=== PATIENT | male | born 1965 | race African-American/Black ===

== ENCOUNTER 2017-08-21 20:04 | Inpatient (IN) | payer OTHER ==
--- NOTE | 2017-08-21 20:33 | HP ---
COWS - Scale Resting Pulse: 1= [place] 81-100 Sweatin=Flushed/Facial Moisture Restless Observation: 0= Sits Still Pupil Size: 0= Normal to Room Light Bone or Joint Aches: 4=Acute Joint/Muscle Pain Runny Nose/ Eye Tearin= Runny Nose/Eyes GI Upset > 30mins: 3= Vomiting/Diarrhea (vomiting x 1) Tremor Observation: 2= Slight Tremor Visible Yawning Observation: 0= None Anxiety or Irritability: 2=Irritable/Anxious Goose Flesh Skin: 0=Smooth Skin COWS Score: 16 CIWA Score - CIWA Score Nausea/Vomitin (vomiting x 1) Muscle Tremors: 4-Moderate,w/Arms Extend Anxiety: 3 Agitation: 2 Paroxysmal Sweats: 3 Orientation: 0-Oriented Tacttile Disturbances: 0-None Auditory Disturbances: 0-None Visual Disturbances: 0-None Headache: 0-None Present CIWA-Ar Total Score: 14 Admission [facility] - HPI Chief Complaint: Alcohol and heroin withdrawal symptoms Allergies/Adverse Reactions: Allergies Allergy/AdvReac Type Severity Reaction Status Date / Time No Known Allergies Allergy Verified 08/21/17 22:53 History of Present Illness: 51 years old male with a long history of alcohol and heroin dependence is admitted to detox. Patient states that he was on [facility]MTP program but stopped 3 months ago. He has been in previous detox and reports 2 years of sobriety. He has past medical history of asthma, HTN, CHF and hypercholesterolemia. He denies suicidal ideation at this time. Exam Limitations: No Limitations - Ebola screening Have you traveled outside of the country in the last 21 days: No (N) Have you had contact with anyone from an Ebola affected area: No Have you been sick,other than usual withdrawal symptoms: No Do you have a fever: No - Review of Systems Constitutional: Chills, Malaise, Night Sweats, Changes in sleep EENT: reports: No Symptoms Reported Respiratory: reports: No Symptoms reported (yellow phlegm), Cough Cardiac: reports: No Symptoms Reported GI: reports: Poor Fluid Intake, Vomiting, Abdominal cramping : reports: No Symptoms Reported Musculoskeletal: reports: Back Pain, Muscle Pain, Muscle Weakness, Other ( sholuder pain) Integumentary: reports: Dryness, Flushing Neuro: reports: Tingling, Tremors Endocrine: reports: No Symptoms Reported Hematology: reports: No Symptoms Reported Psychiatric: reports: Mood/Affect Appropiate, Orientated x3, Anxious Other Systems: Reviewed and Negative Patient History - Patient Medical History Hx Anemia: No Hx Asthma: Yes (MDI) Hx Chronic Obstructive Pulmonary Disease (COPD): No Hx Cancer: No Hx Cardiac Disorders: Yes (CHF on meds.) Hx Congestive Heart Failure: Yes (COREG, DIGOXIN, ASPIRIN) Hx Hypertension: Yes (LISINOPRIL, ISORSORBIDE) Hx Hypercholesterolemia: Yes Hx Pacemaker: No HX Cerebrovascular Accident: No Hx Seizures: No Hx Dementia: No Hx Diabetes: No Hx Gastrointestinal Disorders: No Hx Liver Disease: No Hx Genitourinary Disorders: No Hx Sexually Transmitted Disorders: No Hx Renal Disease (ESRD): No Hx Thyroid Disease: No Hx Human Immunodeficiency Virus (HIV): No (NEGATIVE 2016) Hx Hepatitis C: No (NEGATIVE 2016) Hx Depression: No Hx Suicide Attempt: No (DENIES SUICIDAL IDEATION) Hx Bipolar Disorder: No Hx Schizophrenia: No - Patient Surgical History Past Surgical History: No - PPD History Previous Implant?: Yes Documented Results: Negative w/proof Implanted On Prior [facility] Admission?: Yes Date: 02/22/14 PPD to be Administered?: Yes - Reproductive History Patient is a Female of Child Bearing Age (11 -55 yrs old): No (MALE) - Smoking Cessation Smoking history: Current every day smoker Have you smoked in the past 12 months: Yes Aproximately how many cigarettes per day: 5 Hx Chewing Tobacco Use: No Initiated information on smoking cessation: Yes 'Breaking Loose' booklet given: 08/21/17 - Substance & Tx. History Hx Alcohol Use: Yes Hx Substance Use: Yes Substance Use Type: Alcohol, Cocaine, Heroin Hx Substance Use Treatment: Yes ([facility]) - Substances Abused Alcohol Route: Oral Frequency: Daily Amount used: 5 beers Age of first use: 18 Date of Last Use: 08/21/17 Heroin Route: Inhalation Frequency: Daily Amount used: 5 bags Age of first use: 18 Date of Last Use: 08/21/17 Family Disease History - Family Disease History Family Disease History: Heart Disease: Father (HTN) Admission Physical Exam S - Physical General Appearance: Yes: Moderate Distress, Tremorous, Irritable, Sweating, Anxious HEENTM: Yes: EOMI, Normal ENT Inspection, Normal Voice, AYALA Respiratory: Yes: Lungs Clear, Normal Breath Sounds, No Respiratory Distress Neck: Yes: No masses,lesions,Nodules, Supple, Trachea in good position Breast: Yes: Breast Exam Deferred Cardiology: Yes: Regular Rhythm, Regular Rate, S1, S2 Abdominal: Yes: Normal Bowel Sounds, Soft Genitourinary: Yes: Within Normal Limits Back: Yes: Normal Inspection Musculoskeletal: Yes: Back pain, Muscle Pain, Muscle weakness Extremities: Yes: Tremors Neurological: Yes: Alert, Normal Mood/Affect Integumentary: Yes: Warm Lymphatic: Yes: Within Normal Limits - Diagnostic (1) Opioid dependence with withdrawal Current Visit: Yes Status: Chronic (2) Cocaine dependence, uncomplicated Current Visit: Yes Status: Chronic (3) Asthma Current Visit: Yes Status: Chronic (4) CHF (congestive heart failure) Current Visit: Yes Status: Chronic (5) Essential hypertension Current Visit: Yes Status: Chronic (6) Nicotine dependence Current Visit: Yes Status: Chronic Cleared for Admission [facility] - Detox or Rehab S Level of Care: Medically Managed Detox Regimen/Protocol: Methadone/Librium [facility] Breath Alcohol Content Breath Alcohol Content: 0 Vital Signs - Vital Signs Vital Signs Refused: No
[2017-08-21 20:36] VITALS: BMI 26.1
[2017-08-21] MEDS ORDERED: guaiFENesin/D-METHORPHAN HB 10 ML UNIT-DOSE CUPS PO PRN (20:57)
[2017-08-21] MEDS ORDERED: MENTHOL/PHENOL 1 EACH UD MM PRN (20:57)
[2017-08-21] MEDS ORDERED: MAGNESIUM HYDROX 2400MG/30ML ORAL SUSPENSION 30 ML CUP PO PRN (20:57)
[2017-08-21] MEDS ORDERED: NICOTINE POLACRILEX 2 MG GUM BC PRN (20:57)
[2017-08-21] MEDS ORDERED: chlordiazePOXIDE HCL 25 MG CAPSULE PO PRN (20:57)
[2017-08-21] MEDS ORDERED: LOPERAMIDE HCL 2 MG CAPSULE PO PRN (20:57)
[2017-08-21] MEDS ORDERED: METHADONE HCL 10 MG TABLET (FOR DETOX USE ONLY) PO ONE ×2 (20:57→23:00)
[2017-08-21] MEDS ORDERED: ACETAMINOPHEN 325 MG TABLET (FP) PO PRN (20:57)
[2017-08-21] MEDS ORDERED: MAGNESIUM CITRATE 300 ML BOTTLE PO PRN (20:57)
[2017-08-21] MEDS ORDERED: IBUPROFEN 400 MG TABLET (FP) PO PRN (20:57)
[2017-08-21] MEDS ORDERED: P-EPHED 60MG/TRIPROLIDI 2.5MG TABLET PO PRN (20:57)
[2017-08-21] MEDS ORDERED: METHADONE HCL 10 MG TABLET (FOR DETOX USE ONLY) ONE (23:08)
[2017-08-21] MEDS: ATORVASTATIN CA 10 MG TABLET (FP) PO SCH (23:11)
[2017-08-21] MEDS: chlordiazePOXIDE HCL 25 MG CAPSULE PO SCH (23:11)
[2017-08-21] MEDS: THIAMINE HCL 100 MG TABLET (FP) PO SCH (23:12)
[2017-08-22 00:06] LABS: URINE APPEARANCE CLEAR; URINE BILIRUBIN NEGATIVE (NEGATIVE); URINE BLOOD NEGATIVE (NEGATIVE); URINE COLOR LTYELLOW; URINE GLUCOSE (UA) NEGATIVE (NEGATIVE); URINE KETONE NEGATIVE (NEGATIVE); URINE LEUK ESTERASE NEGATIVE (NEGATIVE); URINE NITRITE NEGATIVE (NEGATIVE); URINE PROTEIN NEGATIVE (NEGATIVE)
[2017-08-22] MEDS: chlordiazePOXIDE HCL 25 MG CAPSULE PO SCH ×4 (05:47→22:23)
[2017-08-22] MEDS ORDERED: METHADONE HCL 10 MG TABLET (FOR DETOX USE ONLY) PO SCH (10:00)
[2017-08-22 10:17] LABS: HEMATOCRIT 40.9 % (35.4-49); MCH 28.3 pg (25.7-33.7); MCHC 31.7 g/dl (32.0-35.9); MEAN CELL VOLUME 89.3 fl (80-96); MEAN PLT VOLUME 7.7 fl (7.5-11.1); PLATELET COUNT 232 K/MM3 (134-434); RBC 4.58 M/mm3 (4.00-5.60); WHITE BLOOD COUNT 5.3 K/mm3 (4.0-10.0)
--- NOTE | 2017-08-22 10:20 | PN ---
[facility] CIWA - CIWA Score Nausea/Vomitin-Mild Nausea/No Vomiting Muscle Tremors: 4-Moderate,w/Arms Extend Anxiety: 3 Agitation: 3 Paroxysmal Sweats: 1-Minimal Palms Moist Orientation: 0-Oriented Tacttile Disturbances: 0-None Auditory Disturbances: 0-None Visual Disturbances: 0-None Headache: 0-None Present CIWA-Ar Total Score: 12 S COWS - Scale Resting Pulse: 1= [place] 81-100 Sweatin= Chills/Flushing Restless Observation: 3= Extraneous Movement Pupil Size: 0= Normal to Room Light Bone or Joint Aches: 2= Severe Diffuse Aches Runny Nose/ Eye Tearin= Runny Nose/Eyes GI Upset > 30mins: 1= Stomach Cramp Tremor Observation of Outstretched Hands: 1= Tremor [place], Not Seen Yawning Observation: 1= 1-2x During Session Anxiety or Irritability: 2=Irritable/Anxious Goose Flesh Skin: 0=Smooth Skin COWS Score: 14 [facility] Progress Note (SOAP) Subjective: GI distress tremor sweating restlessness Objective: 08/22/17 10:21 Vital Signs Temperature 96.3 F L 08/22/17 06:28 Pulse Rate 81 08/22/17 06:28 Respiratory Rate 18 08/22/17 06:28 Blood Pressure 110/73 08/22/17 06:28 O2 Sat by Pulse Oximetry (%) Laboratory Last Values Urine Color Ltyellow 08/21/17 23:50 Urine Appearance Clear 08/21/17 23:50 Urine pH 6.0 (5.0-8.0) 08/21/17 23:50 Ur Specific [place] 1.015 (1.001-1.035) 08/21/17 23:50 Urine Protein Negative (NEGATIVE) 08/21/17 23:50 Urine Glucose (UA) Negative (NEGATIVE) 08/21/17 23:50 Urine Ketones Negative (NEGATIVE) 08/21/17 23:50 Urine Blood Negative (NEGATIVE) 08/21/17 23:50 Urine Nitrite Negative (NEGATIVE) 08/21/17 23:50 Urine Bilirubin Negative (NEGATIVE) 08/21/17 23:50 Urine Urobilinogen 2.0 mg/dL (0.2-1.0) 08/21/17 23:50 Ur Leukocyte Esterase Negative (NEGATIVE) 08/21/17 23:50 lab noted 08/22/17 10:21 bp 157/106 patient will received lisinopril amlodopine coreg Assessment: 08/22/17 10:21 withdrawal sx Plan: continue detox continue bp monitoring
[2017-08-22 10:21] LABS: ALBUMIN 2.6 g/dl (3.4-5.0); ANION GAP 7 (8-16); BILIRUBIN,TOTAL 1.1 mg/dL (0.2-1.0); BLOOD UREA NITROGEN 18 mg/dL (7-18); CALCIUM 7.5 mg/dL (8.5-10.1); CHLORIDE 99 mmol/L (98-107); CO2 32 mmol/L (21-32); CREATININE 1.3 mg/dL (0.7-1.3); GLUCOSE,RANDOM 97 mg/dL (74-106); SGOT/AST 51 U/L (15-37); SGPT/ALT 87 U/L (12-78); SODIUM 138 mmol/L (136-145); TOT PROT 5.2 g/dl (6.4-8.2)
[2017-08-22 10:22] LABS: ALK PHOS 204 U/L (45-117)
[2017-08-22] MEDS: ASPIRIN 81 MG CHEWABLE TABLETS PO SCH (10:49)
[2017-08-22] MEDS: ISOSORBIDE MONONITRATE 30 MG TAB.SR.24H (FP) PO SCH (10:49)
[2017-08-22] MEDS: LISINOPRIL 20 MG TABLET (FP) PO SCH (10:49)
[2017-08-22] MEDS: CARVEDILOL 25 MG TABLET (FP) PO SCH (10:50)
[2017-08-22] MEDS: PRENATAL VITAMINS W/ FOLIC ACID TABLET (FP) PO SCH (10:50)
[2017-08-22] MEDS: amLODIPine BESYLATE 10 MG TABLET (FP) PO SCH (10:50)
[2017-08-22] MEDS: NICOTINE 14 MG/24 HOURS TOPICAL PATCH TD SCH (10:50)
[2017-08-22 11:37] LABS: POTASSIUM 2.9 mmol/L (3.5-5.1)
[2017-08-22] MEDS: POTASSIUM CHLORIDE ORAL LIQUID 20 MEQ/15 ML PO SCH ×2 (11:40→22:23)
[2017-08-22] MEDS: DIGOXIN 0.125 MG TABLET (FP) PO SCH (11:48)
[2017-08-22] MEDS: METOLAZONE 2.5 MG TABLET (FP) PO SCH (11:52)
[2017-08-22] MEDS: ALBUTEROL SO4 18 GM HFA INHALER IH SCH ×4 (11:59→23:30)
[2017-08-22] MEDS: THIAMINE HCL 100 MG TABLET (FP) PO SCH (22:23)
[2017-08-22] MEDS: ATORVASTATIN CA 10 MG TABLET (FP) PO SCH (22:23)
[2017-08-23] MEDS: ALBUTEROL SO4 18 GM HFA INHALER IH SCH ×5 (04:00→23:04)
[2017-08-23] MEDS: chlordiazePOXIDE HCL 25 MG CAPSULE PO SCH ×3 (04:02→16:41)
[2017-08-23] MEDS: MAG HYDROX/AL HYDROX/SIMETH 30 ML UNIT-DOSE CUP PO PRN (05:35)
--- NOTE | 2017-08-23 10:01 | PN ---
S CIWA - CIWA Score Nausea/Vomitin Muscle Tremors: 3 Anxiety: 3 Agitation: 3 Paroxysmal Sweats: 2 Orientation: 0-Oriented Tacttile Disturbances: 1-Very Mild Itch/Numbness Auditory Disturbances: 1-Very Mild Visual Disturbances: 0-None Headache: 2-Mild CIWA-Ar Total Score: 18 [facility] COWS - Scale Resting Pulse: 0= [place] 80 or Below Sweatin= Chills/Flushing Restless Observation: 3= Extraneous Movement Pupil Size: 1= Pupils >than Normal Bone or Joint Aches: 2= Severe Diffuse Aches Runny Nose/ Eye Tearin= Runny Nose/Eyes GI Upset > 30mins: 2= Nausea/Diarrhea Tremor Observation of Outstretched Hands: 2= Slight Tremor Visible Yawning Observation: 1= 1-2x During Session Anxiety or Irritability: 2=Irritable/Anxious Goose Flesh Skin: 0=Smooth Skin COWS Score: 16 [facility] Progress Note (SOAP) Subjective: ALERT,IRRITABLE,ANXIOUS,INTERRUPTED SLEEP,TREMOR,PAIN IN THE BODY AND BACK Objective: 08/23/17 09:59 Vital Signs Temperature 96.1 F L 08/23/17 06:32 Pulse Rate 86 08/23/17 06:32 Respiratory Rate 18 08/23/17 06:32 Blood Pressure 118/78 08/23/17 06:32 O2 Sat by Pulse Oximetry (%) Laboratory Last Values WBC 5.3 K/mm3 (4.0-10.0) 08/22/17 07:40 RBC 4.58 M/mm3 (4.00-5.60) 08/22/17 07:40 Hgb 13.0 GM/dL (11.7-16.9) 08/22/17 07:40 Hct 40.9 % (35.4-49) 08/22/17 07:40 MCV 89.3 fl (80-96) 08/22/17 07:40 MCH 28.3 pg (25.7-33.7) 08/22/17 07:40 MCHC 31.7 g/dl (32.0-35.9) L 08/22/17 07:40 RDW 13.0 % (11.9-15.9) D 08/22/17 07:40 Plt Count 232 K/MM3 (134-434) 08/22/17 07:40 MPV 7.7 fl (7.5-11.1) 08/22/17 07:40 Sodium 138 mmol/L (136-145) 08/22/17 07:40 Potassium 2.9 mmol/L (3.5-5.1) L* 08/22/17 07:40 Chloride 99 mmol/L (98-107) 08/22/17 07:40 Carbon Dioxide 32 mmol/L (21-32) 08/22/17 07:40 Anion Gap 7 (8-16) L 08/22/17 07:40 BUN 18 mg/dL (7-18) 08/22/17 07:40 Creatinine 1.3 mg/dL (0.7-1.3) 08/22/17 07:40 Creat Clearance w eGFR 57.97 (>60) 08/22/17 07:40 Random Glucose 97 mg/dL (74-106) 08/22/17 07:40 Calcium 7.5 mg/dL (8.5-10.1) L 08/22/17 07:40 Total Bilirubin 1.1 mg/dL (0.2-1.0) H D 08/22/17 07:40 AST 51 U/L (15-37) H D 08/22/17 07:40 ALT 87 U/L (12-78) H D 08/22/17 07:40 Alkaline Phosphatase 204 U/L (45-117) H D 08/22/17 07:40 Total Protein 5.2 g/dl (6.4-8.2) L D 08/22/17 07:40 Albumin 2.6 g/dl (3.4-5.0) L D 08/22/17 07:40 Urine Color Ltyellow 08/21/17 23:50 Urine Appearance Clear 08/21/17 23:50 Urine pH 6.0 (5.0-8.0) 08/21/17 23:50 Ur Specific [place] 1.015 (1.001-1.035) 08/21/17 23:50 Urine Protein Negative (NEGATIVE) 08/21/17 23:50 Urine Glucose (UA) Negative (NEGATIVE) 08/21/17 23:50 Urine Ketones Negative (NEGATIVE) 08/21/17 23:50 Urine Blood Negative (NEGATIVE) 08/21/17 23:50 Urine Nitrite Negative (NEGATIVE) 08/21/17 23:50 Urine Bilirubin Negative (NEGATIVE) 08/21/17 23:50 Urine Urobilinogen 2.0 mg/dL (0.2-1.0) 08/21/17 23:50 Ur Leukocyte Esterase Negative (NEGATIVE) 08/21/17 23:50 RPR Titer Nonreactive (NONREACTIVE) 08/22/17 07:40 HIV 1&2 Antibody Screen Negative 08/22/17 07:40 HIV P24 Antigen Negative 08/22/17 07:40 Assessment: 08/23/17 10:00 WITHDRAWAL SYMPTOM Plan: CONTINUE DETOX,K IS 2.9,AST,ALT ELEVATION,K DUR REPLACEMENT,REPEAT CMP,INR IN AM
[2017-08-23] MEDS: POTASSIUM CHLORIDE ORAL LIQUID 20 MEQ/15 ML PO SCH ×2 (10:31→22:32)
[2017-08-23] MEDS: ISOSORBIDE MONONITRATE 30 MG TAB.SR.24H (FP) PO SCH (10:32)
[2017-08-23] MEDS: METOLAZONE 2.5 MG TABLET (FP) PO SCH (10:32)
[2017-08-23] MEDS: ASPIRIN 81 MG CHEWABLE TABLETS PO SCH (10:32)
[2017-08-23] MEDS: CARVEDILOL 25 MG TABLET (FP) PO SCH (10:32)
[2017-08-23] MEDS: PRENATAL VITAMINS W/ FOLIC ACID TABLET (FP) PO SCH (10:32)
[2017-08-23] MEDS: amLODIPine BESYLATE 10 MG TABLET (FP) PO SCH (10:32)
[2017-08-23] MEDS: METHADONE HCL 5 MG TABLET (FOR DETOX USE ONLY) PO SCH (10:33)
[2017-08-23] MEDS: DIGOXIN 0.125 MG TABLET (FP) PO SCH (10:33)
[2017-08-23] MEDS: NICOTINE 14 MG/24 HOURS TOPICAL PATCH TD SCH (10:34)
[2017-08-23] MEDS: LISINOPRIL 20 MG TABLET (FP) PO SCH (10:38)
--- NOTE | 2017-08-23 12:46 | EKG ---
Test Reason : Blood Pressure : / mmHG Vent. Rate : 077 BPM Atrial Rate : 077 BPM P-R Int : 182 ms QRS Dur : 104 ms QT Int : 396 ms P-R-T Axes : 017 -12 100 degrees QTc Int : 448 ms NORMAL SINUS RHYTHM LEFT VENTRICULAR HYPERTROPHY WITH REPOLARIZATION ABNORMALITY ABNORMAL ECG WHEN COMPARED WITH ECG OF 21-AUG-2017 22:14, NO SIGNIFICANT CHANGE WAS FOUND Confirmed by REI ARAGON MD ([id number]) on 08/23/2017 12:46:35 PM Referred By: Confirmed By:REI ARAGON MD
[2017-08-23] MEDS: THIAMINE HCL 100 MG TABLET (FP) PO SCH (22:32)
[2017-08-23] MEDS: ATORVASTATIN CA 10 MG TABLET (FP) PO SCH (22:32)
[2017-08-23] MEDS: chlordiazePOXIDE 5 MG CAPSULE PO SCH (22:32)
[2017-08-24] MEDS: ALBUTEROL SO4 18 GM HFA INHALER IH SCH ×3 (03:30→10:35)
[2017-08-24] MEDS: MAG HYDROX/AL HYDROX/SIMETH 30 ML UNIT-DOSE CUP PO PRN (03:31)
[2017-08-24] MEDS: chlordiazePOXIDE 5 MG CAPSULE PO SCH ×2 (06:12→10:34)
[2017-08-24] MEDS ORDERED: PANTOPRAZOLE 40 MG TABLET (FP) PO ONE (08:26)
[2017-08-24] MEDS ORDERED: PANTOPRAZOLE 40 MG TABLET (FP) PO SCH (10:00)
--- NOTE | 2017-08-24 10:08 | PN ---
[facility] Progress Note (SOAP) Subjective: ALERT,IRRITABLE,ANXIOUS,INTERRUPTED SLEEP,TREMOR,PAIN IN EPIGASTRIUM,PAIN IN THE BODY AND BACK Objective: 08/24/17 10:07 Vital Signs Temperature 95.5 F L 08/24/17 09:55 Pulse Rate 81 08/24/17 09:55 Respiratory Rate 18 08/24/17 09:55 Blood Pressure 137/93 08/24/17 09:55 O2 Sat by Pulse Oximetry (%) Assessment: 08/24/17 10:07 WITHDRAWAL SYMPTOM Plan: CONTINUE DETOX,REPEAT AMP PENDING,PROTONIX 40 MGS PO DAILY
[2017-08-24 10:16] LABS: CHLORIDE 99 mmol/L (98-107); POTASSIUM 3.2 mmol/L (3.5-5.1); SODIUM 138 mmol/L (136-145)
[2017-08-24 10:21] LABS: ALBUMIN 2.6 g/dl (3.4-5.0); ALK PHOS 161 U/L (45-117); ANION GAP 6 (8-16); BILIRUBIN,TOTAL 0.9 mg/dL (0.2-1.0); BLOOD UREA NITROGEN 15 mg/dL (7-18); CALCIUM 8.2 mg/dL (8.5-10.1); CO2 33 mmol/L (21-32); CREATININE 1.2 mg/dL (0.7-1.3); GLUCOSE,RANDOM 87 mg/dL (74-106); SGOT/AST 25 U/L (15-37); SGPT/ALT 55 U/L (12-78); TOT PROT 5.3 g/dl (6.4-8.2)
[2017-08-24] MEDS: ASPIRIN 81 MG CHEWABLE TABLETS PO SCH (10:30)
[2017-08-24] MEDS: POTASSIUM CHLORIDE ORAL LIQUID 20 MEQ/15 ML PO SCH (10:33)
[2017-08-24] MEDS: PRENATAL VITAMINS W/ FOLIC ACID TABLET (FP) PO SCH (10:34)
[2017-08-24] MEDS: METHADONE HCL 5 MG TABLET (FOR DETOX USE ONLY) PO SCH (10:34)
[2017-08-24] MEDS: ISOSORBIDE MONONITRATE 30 MG TAB.SR.24H (FP) PO SCH (10:34)
[2017-08-24] MEDS: CARVEDILOL 25 MG TABLET (FP) PO SCH (10:35)
[2017-08-24] MEDS: LISINOPRIL 20 MG TABLET (FP) PO SCH (10:35)
[2017-08-24] MEDS: amLODIPine BESYLATE 10 MG TABLET (FP) PO SCH (10:35)
[2017-08-24] MEDS: METOLAZONE 2.5 MG TABLET (FP) PO SCH (10:36)
[2017-08-24] MEDS: NICOTINE 14 MG/24 HOURS TOPICAL PATCH TD SCH (10:36)
[2017-08-24] MEDS: DIGOXIN 0.125 MG TABLET (FP) PO SCH (10:39)
[2017-08-24 11:11] LABS: INR 1.01 (0.82-1.09); PROTHROMBIN TIME (PATIENT) 11.4 SEC (9.98-11.88)
[2017-08-24 14:48] VITALS: BP 132/82; PULSE 82; TEMP 97.1
--- NOTE | 2017-08-24 17:21 | PN ---
S Progress Note Note: pt signed out AMA, did not want to complete detox.
--- NOTE | 2017-08-24 17:23 | DS ---
[facility] Detox Discharge Summary Admission Date: 08/21/17 - History Present History: Alcohol Dependence, Cocaine Dependence, Opioid Dependence - Physical Exam Results Vital Signs: Vital Signs Temperature 97.1 F L 08/24/17 14:48 Pulse Rate 82 08/24/17 14:48 Respiratory Rate 16 08/24/17 14:48 Blood Pressure 132/82 08/24/17 14:48 O2 Sat by Pulse Oximetry (%) - Medication Discharge Medications: Ambulatory Orders Amlodipine Besylate [Norvasc -] 10 mg PO DAILY 02/20/14 Aspirin [ASA -] 81 mg PO DAILY 02/20/14 Atorvastatin Ca [Lipitor] 10 mg PO HS 02/20/14 Carvedilol [Coreg -] 25 mg PO DAILY 02/20/14 Digoxin [Lanoxin -] 0.125 mg PO DAILY 02/20/14 Isosorbide Mononitrate [Isosorbide Mononitrate ER] 30 mg PO DAILY 02/20/14 Lisinopril [Prinivil] 20 mg PO DAILY 02/20/14 Metolazone [Zaroxolyn -] 2.5 mg PO DAILY 02/20/14 Albuterol Sulfate Inhaler - [Ventolin Hfa Inhaler -] 2 inh PO Q4H 08/22/17 - Diagnosis (1) Alcohol dependence with uncomplicated withdrawal Current Visit: Yes Status: Chronic (2) Hypokalemia Current Visit: Yes Status: Acute (3) Asthma Current Visit: Yes Status: Chronic (4) CHF (congestive heart failure) Current Visit: Yes Status: Chronic (5) Cocaine dependence, uncomplicated Current Visit: Yes Status: Chronic (6) Essential hypertension Current Visit: Yes Status: Chronic (7) Nicotine dependence Current Visit: Yes Status: Chronic (8) Opioid dependence with withdrawal Current Visit: Yes Status: Chronic (9) Benzodiazepine dependence Current Visit: No Status: Acute (10) Drug-induced mood disorder Current Visit: No Status: Acute (11) Hypercholesterolemia Current Visit: No Status: Acute (12) Methadone maintenance therapy patient Current Visit: No Status: Acute - AMA Did Patient Leave Against Medical Advice: Yes
[2017-08-24] MEDS ORDERED: chlordiazePOXIDE HCL 10 MG CAPSULE PO SCH (23:00)
[2017-08-25] MEDS ORDERED: METHADONE HCL 10 MG TABLET (FOR DETOX USE ONLY) PO SCH (10:00)
[2017-08-26] MEDS ORDERED: METHADONE HCL 5 MG TABLET (FOR DETOX USE ONLY) PO SCH (06:00)
== END 2017-08-24 17:02 | disposition left against medical advice (07) | DRG 770 ==
LOC: YASAS 20:04 → Y6N 21:04
PROVIDERS: ADMIT Internal Medicine; ATTEND Internal Medicine
PROC: HZ2ZZZZ Detoxification Services for Substance Abuse Treatment (ICD-10-PCS; principal; 2017-08-21)
DX: F11.23 Opioid dependence with withdrawal (principal); F13.20 Sedative, hypnotic or anxiolytic dependence, uncomplicated; F10.230 Alcohol dependence with withdrawal, uncomplicated; F14.20 Cocaine dependence, uncomplicated; F17.210 Nicotine dependence, cigarettes, uncomplicated; F19.24 Other psychoactive substance dependence with psychoactive substance-induced mood disorder; I10 Essential (primary) hypertension; I50.9 Heart failure, unspecified; E87.6 Hypokalemia; J45.909 Unspecified asthma, uncomplicated; E78.00 Pure hypercholesterolemia, unspecified; Z59.0 Homelessness
CPT/HCPCS: 36415; 80053; 81003; 85027; 85610; 86593; 87389; 93005; 93010

== ENCOUNTER 2017-11-02 12:35 | Inpatient (IN) | payer OTHER ==
[2017-11-02 13:45] VITALS: BMI 24.3
--- NOTE | 2017-11-02 16:58 | HP ---
"Admission [facility] Chief Complaint: heroin and alcohol withdrawal sx Allergies/Adverse Reactions: Allergies Allergy/AdvReac Type Severity Reaction Status Date / Time No Known Allergies Allergy Verified 11/02/17 16:30 History of Present Illness: This report was requested by: Hong Clements | Reference #: [id number] There are no results for the search terms that you entered.52 yo m with h/o OUD , severe and alcohol used disorder, severe, crack cocaine and nicotien dependence 1/2 PPD reqeusting inpatient detoxifciation becasue of withdrawal sx when he does not use. no h/o seizures, DTS or SI PMHx CHF, HTN, hld, anxiety, depression, and insomna, asthama taking meds, thristy from dehydration recent wt loss adn syncope reported was recently detoxed at [facility] in july Exam Limitations: No Limitations - Ebola screening Have you traveled outside of the country in the last 21 days: No Have you had contact with anyone from an Ebola affected area: No Have you been sick,other than usual withdrawal symptoms: No Do you have a fever: No - Review of Systems Constitutional: Chills, Diaphoresis, Changes in sleep, Unintentional Wgt. Loss EENT: reports: Tearing, Nose Congestion Cardiac: reports: No Symptoms Reported GI: reports: Diarrhea, Nausea, Poor Appetite, Poor Fluid Intake, Vomiting, Indigestion, Abdominal cramping : reports: No Symptoms Reported Integumentary: reports: Flushing, Sweating Neuro: reports: Tremors Endocrine: reports: Increased Thirst Psychiatric: reports: Judgement Intact, Mood/Affect Appropiate, Orientated x3, Anxious, Depressed Other Systems: Reviewed and Negative Patient History - Patient Medical History Hx Anemia: No Hx Asthma: Yes (Pt is on MDI) Hx Chronic Obstructive Pulmonary Disease (COPD): No Hx Cancer: No Hx Cardiac Disorders: Yes (Hx of CHF) Hx Congestive Heart Failure: Yes (COREG, DIGOXIN, ASPIRIN) Hx Hypertension: Yes (on meds.) Hx Hypercholesterolemia: Yes Hx Pacemaker: No HX Cerebrovascular Accident: No Hx Seizures: No Hx Dementia: No Hx Diabetes: No Hx Gastrointestinal Disorders: No Hx Liver Disease: No Hx Genitourinary Disorders: No Hx Sexually Transmitted Disorders: No Hx Renal Disease (ESRD): No Hx Thyroid Disease: No Hx Human Immunodeficiency Virus (HIV): No (NEGATIVE 2016) Hx Hepatitis C: No (NEGATIVE 2016) Hx Depression: No Hx Suicide Attempt: No (no si at this time) Hx Bipolar Disorder: No Hx Schizophrenia: No - Patient Surgical History Past Surgical History: No Hx Neurologic Surgery: No Hx Cataract Extraction: No Hx Cardiac Surgery: No Hx Lung Surgery: No Hx Breast Surgery: No Hx Breast Biopsy: No Hx Abdominal Surgery: No Hx Appendectomy: No Hx Cholecystectomy: No Hx Genitourinary Surgery: No Hx Section: No Hx Orthopedic Surgery: No Anesthesia Reaction: No - PPD History Previous Implant?: Yes Documented Results: Negative w/proof Implanted On Prior [facility] Admission?: Yes Date: 08/23/17 Results: 0 MM PPD to be Administered?: No - Reproductive History Patient is a Female of Child Bearing Age (11 -55 yrs old): No Patient : No - Smoking Cessation Smoking history: Current every day smoker Have you smoked in the past 12 months: Yes Aproximately how many cigarettes per day: 10 Hx Chewing Tobacco Use: No Initiated information on smoking cessation: Yes 'Breaking Loose' booklet given: 11/02/17 - Substance & Tx. History Hx Alcohol Use: Yes Hx Substance Use: Yes Substance Use Type: Alcohol, Cocaine, Heroin, Opiates, Prescribed Hx Substance Use Treatment: Yes ([facility]) - Substances Abused Heroin Route: Inhalation Frequency: Daily Amount used: 8 BAGS Age of first use: 30 Date of Last Use: 11/01/17 Alcohol Route: Oral Frequency: Daily Amount used: 6PK BEER/ 2 PINTS Age of first use: 18 Date of Last Use: 11/01/17 Crack Route: Smoking Frequency: Daily Amount used: $60 Age of first use: 26 Date of Last Use: 11/01/17 Family Disease History - Family Disease History Family Disease History: Heart Disease: Father (HTN) Admission Physical Exam S - Vital Signs Vital Signs: Vital Signs - 24 hr 11/02/17 13:43 Temperature 96.5 F L Pulse Rate 97 H Respiratory 20 Rate Blood Pressure 148/87 - Physical General Appearance: Yes: Nourished, Appropriately Dressed, Disheveled, Mild Distress, Thin, Tremorous, Irritable, Sweating, Anxious HEENTM: Yes: Within Normal Limits, EOMI, Hearing grossly Normal, AYALA, Pharynx Normal, Nasal Congestion, Rhinorrhea Respiratory: Yes: Within Normal Limits, Chest Non-Tender, Lungs Clear, Normal Breath Sounds, No Respiratory Distress, No Accessory Muscle Use Neck: Yes: Within Normal Limits, No masses,lesions,Nodules, Supple, Trachea in good position Breast: Yes: Breast Exam Deferred Cardiology: Yes: Within Normal Limits, Regular Rhythm, Regular Rate, S1, S2 Abdominal: Yes: Within Normal Limits, Normal Bowel Sounds, Non Tender, Flat, Soft, Increased Bowel Sounds Genitourinary: Yes: Within Normal Limits Back: Yes: Within Normal Limits, Normal Inspection Musculoskeletal: Yes: full range of Motion, Gait Steady, Pelvis Stable, Back pain Extremities: Yes: Normal Capillary Refill, Normal Range of Motion, Non-Tender, Tremors Neurological: Yes: sales professional II-XII NML intact, Fully Oriented, Alert, Motor Strength 5/5, Normal Response, Depressed Affect Integumentary: Yes: Normal Color, Warm, Diaphoresis, Moist Lymphatic: Yes: Within Normal Limits - Addiitonal Findings: withdrawal sx - Diagnostic (1) Drug-induced mood disorder Current Visit: No Status: Acute (2) Hypercholesterolemia Current Visit: No Status: Acute (3) Hypokalemia Current Visit: No Status: Acute (4) Alcohol dependence with uncomplicated withdrawal Current Visit: No Status: Chronic (5) Asthma Current Visit: No Status: Chronic (6) CHF (congestive heart failure) Current Visit: No Status: Chronic (7) Cocaine dependence, uncomplicated Current Visit: No Status: Chronic (8) Essential hypertension Current Visit: No Status: Chronic (9) Nicotine dependence Current Visit: No Status: Chronic (10) Opioid dependence with withdrawal Current Visit: No Status: Chronic Cleared for Admission [facility] - Detox or Rehab [facility] Level of Care: Medically Managed Detox Regimen/Protocol: Methadone/Librium [facility] Breath Alcohol Content Breath Alcohol Content: 0 Urine Drug Screen - Results Drug Screen Negative: No Urine Drug Screen Results: ROSALINO-Cocaine, OPI-Opiates, BAR-Barbiturates, TCA- Tricyclic Antidepress, OXY-Oxycodone"
[2017-11-02] MEDS ORDERED: MENTHOL/PHENOL 1 EACH UD MM PRN (17:04)
[2017-11-02] MEDS ORDERED: NICOTINE POLACRILEX 2 MG GUM BC PRN (17:04)
[2017-11-02] MEDS ORDERED: chlordiazePOXIDE HCL 25 MG CAPSULE PO PRN (17:04)
[2017-11-02] MEDS ORDERED: MAG HYDROX/AL HYDROX/SIMETH 30 ML UNIT-DOSE CUP PO PRN (17:04)
[2017-11-02] MEDS ORDERED: LOPERAMIDE HCL 2 MG CAPSULE PO PRN (17:04)
[2017-11-02] MEDS ORDERED: guaiFENesin/D-METHORPHAN HB 10 ML UNIT-DOSE CUPS PO PRN (17:04)
[2017-11-02] MEDS ORDERED: hydrOXYzine PAMOATE 50 MG CAPSULE (FP) PO PRN (17:04)
[2017-11-02] MEDS ORDERED: MAGNESIUM HYDROX 2400MG/30ML ORAL SUSPENSION 30 ML CUP PO PRN (17:04)
[2017-11-02] MEDS ORDERED: ACETAMINOPHEN 325 MG TABLET (FP) PO PRN (17:04)
[2017-11-02] MEDS ORDERED: P-EPHED 60MG/TRIPROLIDI 2.5MG TABLET PO PRN (17:04)
[2017-11-02] MEDS ORDERED: MAGNESIUM CITRATE 300 ML BOTTLE PO PRN (17:04)
[2017-11-02] MEDS ORDERED: chlordiazePOXIDE HCL 25 MG CAPSULE PO ONE (18:00)
[2017-11-02] MEDS ORDERED: METHADONE HCL 10 MG TABLET (FOR DETOX USE ONLY) PO ONE ×2 (18:00→23:00)
[2017-11-02] MEDS: NICOTINE 14 MG/24 HOURS TOPICAL PATCH TD SCH (18:46)
[2017-11-02] MEDS: ALBUTEROL SO4 18 GM HFA INHALER IH SCH ×2 (18:46→22:26)
[2017-11-02] MEDS ORDERED: MONTELUKAST NA 10 MG TABLET PO SCH (22:00)
[2017-11-02] MEDS ORDERED: THIAMINE HCL 100 MG TABLET (FP) PO SCH (22:00)
[2017-11-02] MEDS ORDERED: ATORVASTATIN CA 10 MG TABLET (FP) PO SCH (22:00)
[2017-11-02] MEDS ORDERED: MELATONIN 5 MG TABLETS PO SCH (22:00)
[2017-11-02] MEDS: chlordiazePOXIDE HCL 25 MG CAPSULE PO SCH (22:25)
[2017-11-02] MEDS: CARVEDILOL 6.25 MG TABLET (FP) PO SCH (22:25)
[2017-11-03 01:45] LABS: URINE APPEARANCE TURBID; URINE BILIRUBIN NEGATIVE (NEGATIVE); URINE BLOOD NEGATIVE (NEGATIVE); URINE COLOR AMBER; URINE GLUCOSE (UA) NEGATIVE (NEGATIVE); URINE KETONE NEGATIVE (NEGATIVE); URINE LEUK ESTERASE NEGATIVE (NEGATIVE); URINE NITRITE NEGATIVE (NEGATIVE)
[2017-11-03 02:01] LABS: URINE PROTEIN 1+ (NEGATIVE)
[2017-11-03 02:05] LABS: EPI CELLS RARE /HPF (FEW); URINE BACTERIA RARE /hpf (NONE SEEN); URINE HYALINE CAST 5 /lpf; URINE MUCUS RARE
[2017-11-03] MEDS: chlordiazePOXIDE HCL 25 MG CAPSULE PO SCH ×3 (05:13→19:31)
[2017-11-03] MEDS: ALBUTEROL SO4 18 GM HFA INHALER IH SCH ×6 (06:52→22:43)
[2017-11-03] MEDS ORDERED: ALBUTEROL SO4 2.5/IPRATROPIUM 0.5 INH SOL 3 ML VIAL.NEB. NEB PRN (07:31)
[2017-11-03] MEDS ORDERED: ALBUTEROL SO4 2.5/IPRATROPIUM 0.5 INH SOL 3 ML VIAL.NEB. NEB ONE (07:51)
[2017-11-03 07:55] VITALS: TEMP 96.1
--- NOTE | 2017-11-03 09:05 | PN ---
[facility] Progress Note Note: PATIENT IS A 52 Y/O A/A MALE WITH A HX OF HEROIN,COCAINE AND ALCOHOL DEPENDENCE WHO WAS ADMITTED LAST EVENING FOR DETOX. 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 REPORTED DUONEB TX WAS GIVEN X2 WITH NO RELIEF. NURSING STAFF REPORTS TO ROLL TENSION TESTER AT ABOUT 8:15 AM PT STILL C/O OF SOB WITH PULSE OX OF 80. SAW PT PROPPED IN BED AND ATTEMPTING TO EAT HIS BREAKFAST WITH SOB AND USE OF ACCESSORY MUSCLES. PT WAS SEEN WITH ONGOING OXYGEN 2 L NC TREATMENT. PT ABLE TO TALK BUT WITH INTERMITTENT ATTEMPTS TO CATCH HIS BREATH. PT HAS A PAST MEDICAL HX ASTHMA,CHF,HTN. REPORTS CHEST PAIN X 1 WEEK BEFORE ADMISSION YESTERDAY. DENIED MENTIONING CHEST PAIN ON ADMISSION. PT IS ALERT O X 3. INITIALLY REFUSING TO GO TO THE ER STATING HE WANTS TO STAY IN DETOX. EXPLAINED TO PATIENT THE NEED TO STABILIZE HIM MEDICALLY OF COMORBID CONDITIONS WHILE HE WILL ALSO DETOX. PT AGREED TO GO. Vital Signs Temperature 96.1 F L 11/03/17 07:52 Pulse Rate 91 H 11/03/17 07:52 Respiratory Rate 22 11/03/17 07:52 Blood Pressure 130/91 11/03/17 07:52 O2 Sat by Pulse Oximetry (%) 80 PULSE OX 82% (BEFORE EXIT TO ER) EKG:SINUS RHYTHM WITH OCCASIONAL PREMATURE VENTRICULAR COMLEXES LVH WITH REPOLARIZATION ABNORMALITIES PROLONGED QT ABNORMAL ECG PLAN:PULSE OX O2 2L NC TRANSFER PATIENT TO [facility] ER FOR EVALUATION AND STABILIZATION VIA AMBULANCE. SPOKE WITH DR. GALEAS AT THE ER WHO HAVE AGREED TO RECIEVE THE PATIENT.
[2017-11-03 09:35] VITALS: BP 120/90; PULSE 93
--- NOTE | 2017-11-03 09:46 | PN ---
S Progress Note Note: Psychiatric nurse practitioner: Nursing Teacher approached patient bedside for psychiatric consultation. Nursing Teacher made aware by nursing staff that patient was transferred to [facility].
--- NOTE | 2017-11-03 09:58 | EKG ---
Test Reason : Blood Pressure : / mmHG Vent. Rate : 081 BPM Atrial Rate : 081 BPM P-R Int : 186 ms QRS Dur : 104 ms QT Int : 384 ms P-R-T Axes : 030 004 158 degrees QTc Int : 446 ms SINUS RHYTHM WITH OCCASIONAL PREMATURE VENTRICULAR COMPLEXES LEFT VENTRICULAR HYPERTROPHY WITH REPOLARIZATION ABNORMALITY ABNORMAL ECG WHEN COMPARED WITH ECG OF 02-NOV-2017 18:21, PREMATURE VENTRICULAR COMPLEXES ARE NOW PRESENT ST ELEVATION NOW PRESENT IN ANTERIOR LEADS Confirmed by MAXIM HERNANDEZ MD ([id number]) on 11/03/2017 9:58:00 AM Referred By: Confirmed By:MAXIM HERNANDEZ MD
[2017-11-03] MEDS ORDERED: ASPIRIN 81 MG CHEWABLE TABLETS PO SCH (10:00)
[2017-11-03] MEDS ORDERED: METOLAZONE 2.5 MG TABLET (FP) PO SCH (10:00)
[2017-11-03] MEDS ORDERED: PRENATAL VITAMINS W/ FOLIC ACID TABLET (FP) PO SCH (10:00)
[2017-11-03] MEDS ORDERED: amLODIPine BESYLATE 10 MG TABLET (FP) PO SCH (10:00)
[2017-11-03] MEDS ORDERED: DIGOXIN 0.125 MG TABLET (FP) PO SCH (10:00)
[2017-11-03] MEDS ORDERED: METHADONE HCL 10 MG TABLET (FOR DETOX USE ONLY) PO SCH (10:00)
[2017-11-03 10:05] LABS: HEMATOCRIT 39.6 % (35.4-49); HEMOGLOBIN 12.3 GM/dL (11.7-16.9); MCHC 31.1 g/dl (32.0-35.9); MEAN CELL VOLUME 83.7 fl (80-96); MEAN PLT VOLUME 8.1 fl (7.5-11.1); PLATELET COUNT 266 K/MM3 (134-434); RBC 4.73 M/mm3 (4.00-5.60); RDW 15.9 % (11.9-15.9)
[2017-11-03 10:43] LABS: CHLORIDE 98 mmol/L (98-107); POTASSIUM 3.1 mmol/L (3.5-5.1); SODIUM 142 mmol/L (136-145)
[2017-11-03 10:58] LABS: ALBUMIN 3.1 g/dl (3.4-5.0); ALK PHOS 146 U/L (45-117); ANION GAP 12 (8-16); BILIRUBIN,TOTAL 0.7 mg/dL (0.2-1.0); BLOOD UREA NITROGEN 26 mg/dL (7-18); CALCIUM 8.5 mg/dL (8.5-10.1); CO2 32 mmol/L (21-32); CREATININE 1.2 mg/dL (0.7-1.3); GLUCOSE,RANDOM 113 mg/dL (74-106); SGOT/AST 36 U/L (15-37); SGPT/ALT 35 U/L (12-78); TOT PROT 6.6 g/dl (6.4-8.2)
[2017-11-03] MEDS: CARVEDILOL 6.25 MG TABLET (FP) PO SCH (15:36)
[2017-11-03] MEDS: NICOTINE 14 MG/24 HOURS TOPICAL PATCH TD SCH (15:40)
[2017-11-03] MEDS ORDERED: chlordiazePOXIDE HCL 25 MG CAPSULE PO SCH (23:00)
[2017-11-04] MEDS ORDERED: METHADONE HCL 5 MG TABLET (FOR DETOX USE ONLY) PO SCH (10:00)
[2017-11-04] MEDS ORDERED: chlordiazePOXIDE 5 MG CAPSULE PO SCH (23:00)
[2017-11-05] MEDS ORDERED: chlordiazePOXIDE HCL 10 MG CAPSULE PO SCH (23:00)
[2017-11-06] MEDS ORDERED: METHADONE HCL 10 MG TABLET (FOR DETOX USE ONLY) PO SCH (10:00)
[2017-11-07] MEDS ORDERED: METHADONE HCL 5 MG TABLET (FOR DETOX USE ONLY) PO SCH (06:00)
== END 2017-11-03 22:50 | disposition short-term general hospital (02) | DRG 773 ==
LOC: YASAS 12:35 → Y3N 17:19
PROVIDERS: ADMIT Internal Medicine; ATTEND Internal Medicine
PROC: HZ2ZZZZ Detoxification Services for Substance Abuse Treatment (ICD-10-PCS; principal; 2017-11-02)
DX: F11.23 Opioid dependence with withdrawal (principal); F10.230 Alcohol dependence with withdrawal, uncomplicated; F14.20 Cocaine dependence, uncomplicated; F17.210 Nicotine dependence, cigarettes, uncomplicated; I25.10 Atherosclerotic heart disease of native coronary artery without angina pectoris; I11.0 Hypertensive heart disease with heart failure; E87.6 Hypokalemia; E78.00 Pure hypercholesterolemia, unspecified; F19.24 Other psychoactive substance dependence with psychoactive substance-induced mood disorder
CPT/HCPCS: 36415; 80053; 81003; 81015; 85027; 86593; 87389; 93005; 93010; 94640

== ENCOUNTER 2017-11-03 09:05 | Inpatient (IN) | payer OTHER ==
--- NOTE | 2017-11-03 09:13 | PDOC ---
History of Present Illness <Mikaela Morrisseyan - Last Filed: 11/03/17 16:14> - General History Source: Patient - History of Present Illness Initial Comments: 11/03/17 10:26 52 y.o. male with a PMH of HTN, CHF (on 2L NC @ home), HLD -- presents to ED from [facility] c/o acute onset of dyspnea with chest pain. Patient states the shortness of breath started this morning at 3 a.m. and woke him up from sleep. Patient describes the pain as intermittent, pressure-like, bilateral, 10/10, with no radiation. Patient notes some dyspnea, but notes he has dyspnea at baseline and intermittently uses 2 L O2 @ home. VS significant for SpO2 88-89% @ presentation. Patient denies any fevers/chills, nausea/vomiting, diarrhea/constipation, sick contacts or recent travel. <Gilma Elena - Last Filed: 11/08/17 20:19> - General Stated Complaint: CHEST PAIN Time Seen by Provider: 11/03/17 09:11 Past History <Nuno Morrissey - Last Filed: 11/03/17 16:14> - Past Medical History Anemia: No Asthma: Yes (Pt is on MDI) Cancer: No Cardiac Disorders: Yes (Hx of CHF) CVA: No COPD: No CHF: Yes (COREG, DIGOXIN, ASPIRIN) Dementia: No Diabetes: No GI Disorders: No Disorders: No HTN: Yes (on meds.) Hypercholesterolemia: Yes Kidney Stones: No Liver Disease: No Seizures: No Thyroid Disease: No - Surgical History Abdominal Surgery: No Appendectomy: No Cardiac Surgery: No Cholecystectomy: No Lung Surgery: No Neurologic Surgery: No Orthopedic Surgery: No - Reproductive History Testicular Surgery: No - Suicide/Smoking/Psychosocial Hx Smoking History: Current every day smoker Have you smoked in the past 12 months: Yes Number of Cigarettes Smoked Daily: 10 'Breaking Loose' booklet given: 11/02/17 Hx Alcohol Use: Yes Drug/Substance Use Hx: Yes Substance Use Type: Alcohol, Cocaine, Heroin, Opiates, Prescribed Hx Substance Use Treatment: Yes (detox [facility]) <Gilma Elena - Last Filed: 11/08/17 20:19> - Past Medical History Allergies/Adverse Reactions: Allergies Allergy/AdvReac Type Severity Reaction Status Date / Time No Known Allergies Allergy Verified 11/03/17 09:28 Home Medications: Ambulatory Orders Amlodipine Besylate [Norvasc -] 10 mg PO DAILY 02/20/14 Aspirin [ASA -] 81 mg PO DAILY 02/20/14 Atorvastatin Ca [Lipitor] 10 mg PO HS 02/20/14 Digoxin [Lanoxin -] 0.125 mg PO DAILY 02/20/14 Metolazone [Zaroxolyn -] 2.5 mg PO DAILY 02/20/14 Albuterol Sulfate Inhaler - [Ventolin Hfa Inhaler -] 2 inh PO Q4H 08/22/17 Carvedilol [Coreg -] 6.25 mg PO BID 11/02/17 Cyclobenzaprine HCl [Flexeril -] 10 mg PO BID 11/02/17 Montelukast Na [Singulair -] 10 mg PO HS 11/02/17 Review of Systems - Review of Systems Constitutional: No: Chills, Fever HEENTM: No: Recent change in vision Respiratory: Yes: Shortness of Breath, SOB with Exertion, SOB at Rest. No: Cough Cardiac (ROS): Yes: Chest Pain. No: Lightheadedness, Palpitations, Syncope ABD/GI: No: Constipated, Diarrhea, Nausea, Vomiting : No: Burning, Dysuria <Gilma Elena - Last Filed: 11/08/17 20:19> *Physical Exam - Vital Signs Last Vital Signs Temp Pulse Resp BP Pulse Ox 98.2 F 92 H 18 149/89 98 11/03/17 15:10 11/03/17 15:10 11/03/17 15:10 11/03/17 15:10 11/03/17 15:10 <Nuno Morrissey - Last Filed: 11/03/17 16:14> - Physical Exam General Appearance: Yes: Nourished, Appropriately Dressed HEENT: positive: EOMI, AYALA Neck: positive: Trachea midline, Supple Respiratory/Chest: positive: Lungs Clear, Normal Breath Sounds. negative: Labored Respiration, Rapid RR, Crackles, Rales, Rhonchi, Wheezing Cardiovascular: positive: S1, S2. negative: Edema, JVD, Murmur Gastrointestinal/Abdominal: positive: Normal Bowel Sounds, Soft Musculoskeletal: negative: CVA Tenderness (R), CVA Tenderness (L) Extremity: positive: Normal Capillary Refill, Normal Inspection Integumentary: positive: Normal Color, Dry, Warm Neurologic: positive: Fully Oriented, Alert <Gilma Elena - Last Filed: 11/08/17 20:19> ED Treatment Course - LABORATORY CBC & Chemistry Diagram: 11/03/17 09:56 11/03/17 15:27 - ADDITIONAL ORDERS Additional order review: Laboratory Results 11/03/17 11/03/17 11/03/17 15:27 09:56 09:56 WBC RBC Hgb Hct MCV MCH MCHC RDW Plt Count MPV Neutrophils % Lymphocytes % Monocytes % Eosinophils % Basophils % VBG pH 7.43 H POC VBG pCO2 45.0 POC VBG pO2 71.0 H Mixed VBG HCO3 29.9 H Sodium Potassium 3.2 L Chloride Carbon Dioxide Anion Gap BUN Creatinine Creat Clearance w eGFR Random Glucose Calcium Total Bilirubin AST ALT Alkaline Phosphatase Creatine Kinase Cancelled Creatine Kinase Index CK-MB (CK-2) Troponin I Cancelled B-Natriuretic Peptide Cancelled Total Protein Albumin 11/03/17 11/03/17 09:56 09:56 WBC 6.9 RBC 4.61 Hgb 11.9 Hct 37.9 MCV 82.4 MCH 25.9 MCHC 31.5 L RDW 15.6 Plt Count 239 MPV 8.0 Neutrophils % 61.6 Lymphocytes % 29.6 Monocytes % 5.6 Eosinophils % 2.2 Basophils % 1.0 VBG pH POC VBG pCO2 POC VBG pO2 Mixed VBG HCO3 Sodium 141 Potassium 3.0 L Chloride 100 Carbon Dioxide 31 Anion Gap 10 BUN 27 H Creatinine 1.3 Creat Clearance w eGFR 57.97 Random Glucose 125 H Calcium 8.2 L Total Bilirubin 0.8 AST 32 ALT 33 Alkaline Phosphatase 131 H Creatine Kinase 201 Creatine Kinase Index 1.1 CK-MB (CK-2) 2.244 Troponin I 0.08 H B-Natriuretic Peptide 3790.87 H Total Protein 6.2 L Albumin 3.0 L 11/03/17 09:56 RBC 4.61 MCV 82.4 MCHC 31.5 L RDW 15.6 MPV 8.0 Neutrophils % 61.6 Lymphocytes % 29.6 Monocytes % 5.6 Eosinophils % 2.2 Basophils % 1.0 - Medications Given in the ED: ED Medications Discontinued Medications Generic Name Dose Route Start Last Admin Trade Name Freq PRN Reason Stop Dose Admin Acetaminophen 1,000 mg 11/03/17 10:38 11/03/17 10:47 Tylenol - PO 11/03/17 10:39 1,000 mg ONCE ONE Administration Potassium Chloride 40 meq 11/03/17 11:46 11/03/17 11:58 K-Dur - PO 11/03/17 11:47 40 meq ONCE ONE Administration <Nuno Morrissey - Last Filed: 11/03/17 16:14> - LABORATORY CBC & Chemistry Diagram: 11/03/17 09:56 11/03/17 15:27 <Gilma Elena - Last Filed: 11/08/17 20:19> Medical Decision Making - Medical Decision Making 11/07/17 18:38 Patient is a 52 year old male who presents to the ED with chest pain and dyspnea. At presentation patient hypoxic (SpO2 88-89%) w/intermittent chest pain. DDx includes CHF exacerbation, ACS, muskoskeletal pain. Will order labs and Troponin. EKG shows NSR HR 90, good R wave progression V1-V6, non-ischemic EKG Labs significant for Troponin 0.09, K+ 3.0. CXR shows increased pulmonary vascular congestion, will give IV Lasix. PO K+ replacement. At this time patient chest pain resolved, however given congestive CXR changes will admit for further cardiology Patient admitted to hospitalist for further evaluation. 11/07/17 19:00 <Gilma Elena - Last Filed: 11/08/17 20:19> *DC/Admit/Observation/Transfer <Nuno Morrissey - Last Filed: 11/03/17 16:14> <Gilma Elena - Last Filed: 11/08/17 20:19> Diagnosis at time of Disposition: CHF (congestive heart failure) - Discharge Dispostion Disposition: AGAINST MEDICAL ADVICE
[2017-11-03 09:29] VITALS: BMI 24.0
[2017-11-03] MEDS ORDERED: ACETAMINOPHEN 500 MG TABLET (FP) PO ONE (10:38)
[2017-11-03 10:40] LABS: EOS % 2.2 % (0-4.5); HEMATOCRIT 37.9 % (35.4-49); HEMOGLOBIN 11.9 GM/dL (11.7-16.9); LYMPH % 29.6 % (8-40); MCH 25.9 pg (25.7-33.7); MCHC 31.5 g/dl (32.0-35.9); MEAN CELL VOLUME 82.4 fl (80-96); MONO % 5.6 % (3.8-10.2); NEUT % 61.6 % (42.8-82.8); PLATELET COUNT 239 K/MM3 (134-434); RBC 4.61 M/mm3 (4.00-5.60); RDW 15.6 % (11.9-15.9); WHITE BLOOD COUNT 6.9 K/mm3 (4.0-10.0)
[2017-11-03 10:42] LABS: VENOUS PH 7.43 (7.32-7.42)
[2017-11-03 11:02] LABS: ANION GAP 10 (8-16); BLOOD UREA NITROGEN 27 mg/dL (7-18); CALCIUM 8.2 mg/dL (8.5-10.1); CHLORIDE 100 mmol/L (98-107); CO2 31 mmol/L (21-32); CREATININE 1.3 mg/dL (0.7-1.3); GLUCOSE,RANDOM 125 mg/dL (74-106); SGOT/AST 32 U/L (15-37); SGPT/ALT 33 U/L (12-78); SODIUM 141 mmol/L (136-145)
[2017-11-03 11:05] LABS: ALK PHOS 131 U/L (45-117); BILIRUBIN,TOTAL 0.8 mg/dL (0.2-1.0); TOT PROT 6.2 g/dl (6.4-8.2)
[2017-11-03] MEDS ORDERED: POTASSIUM CHLORIDE TABS 20 MEQ TABLET.ER (FP) PO ONE ×2 (11:46→16:55)
[2017-11-03] MEDS ORDERED: POTASSIUM CHLORIDE TABS 10 MEQ TABLET.ER (FP) ONE (11:55)
[2017-11-03 15:03] LABS: N-TERMINAL BNP 3790.87 pg/ml (5-125)
--- NOTE | 2017-11-03 15:47 | PDOC ---
Attending Attestation - Resident Resident Name: Gilma Elena - ED Attending Attestation I have performed the following: I have examined & evaluated the patient, The case was reviewed & discussed with the resident, I agree w/resident's findings & plan, Exceptions are as noted - HPI HPI: 11/03/17 15:48 "The patient is a 52 year old male, with a significant past medical history of cocaine and ETOH abuse, CHF, HTN, HLD, who presents to the emergency department with chest pain and shortness of breath today from [facility]. Pt states that his symptoms began yesterday but have since resolved. He states that he feels pressure on both sides of his chest. Endorses AVILA and orthopnea. Denies any significant leg swelling. The patient denies headache and dizziness. The patient denies fever, chills, nausea, vomit, diarrhea and constipation. The patient denies dysuria, frequency , urgency and hematuria. " - Physicial Exam PE: 11/03/17 15:50 "GENERAL: Awake, alert, and fully oriented, in no acute distress HEAD: No signs of trauma EYES: PERRLA, EOMI, sclera anicteric, conjunctiva clear ENT: Auricles normal inspection, hearing grossly normal, nares patent, oropharynx clear without exudates. Moist mucosa NECK: Nontender, no stepoffs, Normal ROM, supple, no lymphadenopathy, JVD, or masses LUNGS: Breath sounds equal, clear to auscultation bilaterally. No wheezes, and no crackles HEART: Regular rate and rhythm, normal S1 and S2, no murmurs, rubs or gallops ABDOMEN: Soft, nontender, normoactive bowel sounds. No guarding, no rebound. No masses EXTREMITIES: Normal range of motion, no edema. No clubbing or cyanosis. No cords, erythema, or tenderness NEUROLOGICAL: Cranial nerves II through XII intact. 5/5 strength and sensation in all extremities, Normal speech, normal gait, normal cerebellar function SKIN: Warm, Dry, normal turgor, no rashes or lesions noted. " - Medical Decision Making 11/03/17 15:51 52 M with h/o CHF, HTN, DM, ETOh abuse presents to ED with CP+SOB. Vitals notable for hypoxia. Concerning for CHF exacerbation vs ACS. EKG shows lateral TWIs, though these were present previously. - Labs, trop, BNP - CXR - Lasix 11/03/17 15:57 BNP elevated, mild trop elevation 0.09. CXR with congestive changes Consistent with CHF exacerbation. Pt given lasix 40mg IV. Potassium repleted. Will admit to tele obs. 11/03/17 16:14 Pt admitted to hospitalist
[2017-11-03] MEDS ORDERED: chlordiazePOXIDE HCL 25 MG CAPSULE PO ONE (15:51)
--- NOTE | 2017-11-03 15:53 | EKG ---
Test Reason : Blood Pressure : / mmHG Vent. Rate : 090 BPM Atrial Rate : 090 BPM P-R Int : 198 ms QRS Dur : 102 ms QT Int : 386 ms P-R-T Axes : 048 011 156 degrees QTc Int : 472 ms SINUS RHYTHM WITH OCCASIONAL PREMATURE VENTRICULAR COMPLEXES LEFT VENTRICULAR HYPERTROPHY WITH REPOLARIZATION ABNORMALITY CANNOT RULE OUT SEPTAL INFARCT , AGE UNDETERMINED ABNORMAL ECG WHEN COMPARED WITH ECG OF 03-NOV-2017 07:04, NO SIGNIFICANT CHANGE WAS FOUND Confirmed by MAXIM HERNANDEZ MD ([id number]) on 11/03/2017 3:53:00 PM Referred By: Confirmed By:MAXIM HERNANDEZ MD
[2017-11-03] MEDS ORDERED: FUROSEMIDE 40 MG/4 ML INJECTABLE VIAL IVPUSH ONE (15:56)
[2017-11-03] MEDS ORDERED: chlordiazePOXIDE HCL 25 MG CAPSULE PO PRN (16:36)
[2017-11-03] MEDS ORDERED: ASPIRIN COATED 81 MG TABLET.EC ONE (16:55)
[2017-11-03] MEDS ORDERED: chlordiazePOXIDE HCL 25 MG CAPSULE ONE (16:55)
[2017-11-03] MEDS ORDERED: amLODIPine BESYLATE 5 MG TABLET (FP) ONE (16:55)
[2017-11-03] MEDS ORDERED: FUROSEMIDE 40 MG/4 ML INJECTABLE VIAL ONE (16:56)
[2017-11-03] MEDS: chlordiazePOXIDE HCL 25 MG CAPSULE PO SCH ×2 (17:02→22:43)
[2017-11-03] MEDS: amLODIPine BESYLATE 10 MG TABLET (FP) PO SCH (17:02)
[2017-11-03] MEDS: POTASSIUM CHLORIDE TABS 20 MEQ TABLET.ER (FP) PO SCH ×2 (17:02→22:43)
[2017-11-03] MEDS: ASPIRIN COATED 81 MG TABLET.EC PO SCH (17:02)
[2017-11-03 18:01] LABS: URINE APPEARANCE CLEAR; URINE BILIRUBIN NEGATIVE (NEGATIVE); URINE BLOOD NEGATIVE (NEGATIVE); URINE COLOR STRAW; URINE GLUCOSE (UA) NEGATIVE (NEGATIVE); URINE KETONE NEGATIVE (NEGATIVE); URINE LEUK ESTERASE NEGATIVE (NEGATIVE); URINE NITRITE NEGATIVE (NEGATIVE); URINE PROTEIN NEGATIVE (NEGATIVE); URINE UROBILINOGEN NEGATIVE mg/dL (0.2-1.0)
[2017-11-03 18:16] LABS: URINE AMPHETAMINES NEGATIVE ng/ml (CUTOFF=500); URINE BARBITURATES NEGATIVE ng/ml (CUTOFF=200); URINE BENZODIAZEPINES NEGATIVE ng/ml (CUTOFF=200)
[2017-11-03 18:17] LABS: COCAINE, UR POSITIVE ng/ml (CUTOFF=300); METHADONE, UR NEGATIVE ng/ml (CUTOFF=300); OPIATES, URI POSITIVE ng/ml (CUTOFF=300); PHENCYCLIDINE,URINE NEGATIVE ng/ml (CUTOFF=25)
--- NOTE | 2017-11-03 18:32 | HP ---
CHIEF COMPLAINT: SOB PCP: Dr. Neff Harriet HISTORY OF PRESENT ILLNESS: 52 year-old male with a PMH significant for asthma, HTN, HLD, CHF, and polysubstance abuse (alcohol, crack/cocaine, heroin). Patient was picked up in [place] and brought to [facility] for detox on 11/02. On the morning of 11/03 he was observed by staff to be SOB. His pulse ox was 82% on room air. Patient said he had been SOB and with chest pain x 2 days. Patient was brought to ED where his initial O2 sat was 89% on room air. Patient states that his symptoms are related to going through withdrawal. He has had sweats, chills, vomiting and diarrhea, but only since yesterday when he started to withdraw. Patient states he is followed by a regional account director at [place] (name unknown) and that he gets his cardiac medications from Dr. Neff in [place]. He states he had an echo one month ago at [facility] in [place] as part of a detox admission, according to patient unremarkable study. ER course was notable for: (1) SpO2 89% on room air (2) CXR: congestive changes, some interstitial fluid (3) BNP 3790 Recent Travel: No PAST MEDICAL HISTORY: Asthma Hypertension Hyperlipidemia CHF Polysubstance abuse PAST SURGICAL HISTORY: None reported Social History: Smoking: current every day Alcohol: last drink 11/01/17 Drugs: inhalation heroin 8 bags/day, last use 11/01/17; last crack cocaine use Family History: Allergies No Known Allergies Allergy (Verified 11/03/17 09:28) HOME MEDICATIONS: Home Medications Medication Instructions Recorded Amlodipine Besylate [Norvasc -] 10 mg PO DAILY 02/20/14 Aspirin [ASA -] 81 mg PO DAILY 02/20/14 Atorvastatin Ca [Lipitor] 10 mg PO HS 02/20/14 Digoxin [Lanoxin -] 0.125 mg PO DAILY 02/20/14 Metolazone [Zaroxolyn -] 2.5 mg PO DAILY 02/20/14 Albuterol Sulfate Inhaler - 2 inh PO Q4H 08/22/17 [Ventolin Hfa Inhaler -] Carvedilol [Coreg -] 6.25 mg PO BID 11/02/17 Cyclobenzaprine HCl [Flexeril -] 10 mg PO BID 11/02/17 Montelukast Na [Singulair -] 10 mg PO HS 11/02/17 REVIEW OF SYSTEMS CONSTITUTIONAL: Absent: fever, chills, diaphoresis, generalized weakness, malaise, loss of appetite, weight change HEENT: Absent: rhinorrhea, nasal congestion, throat pain, throat swelling, difficulty swallowing, mouth swelling, ear pain, eye pain, visual changes CARDIOVASCULAR: +chest pain Absent: syncope, palpitations, irregular heart rate, lightheadedness, peripheral edema RESPIRATORY: +SOB Absent: cough, dyspnea with exertion, orthopnea, wheezing, stridor, hemoptysis GASTROINTESTINAL: Absent: abdominal pain, abdominal distension, nausea, vomiting, diarrhea, constipation, melena, hematochezia GENITOURINARY: Absent: dysuria, frequency, urgency, hesitancy, hematuria, flank pain, genital pain MUSCULOSKELETAL: Absent: myalgia, arthralgia, joint swelling, back pain, neck pain SKIN: Absent: rash, itching, pallor HEMATOLOGIC/IMMUNOLOGIC: Absent: easy bleeding, easy bruising, lymphadenopathy, frequent infections ENDOCRINE: Absent: unexplained weight gain, unexplained weight loss, heat intolerance, cold intolerance NEUROLOGIC: Absent: headache, focal weakness or paresthesias, dizziness, unsteady gait, seizure, mental status changes, bladder or bowel incontinence PSYCHIATRIC: Absent: anxiety, depression, suicidal or homicidal ideation, hallucinations. PHYSICAL EXAMINATION Vital Signs Temperature 98.2 F 11/03/17 20:31 Pulse Rate 92 H 11/03/17 20:31 Respiratory Rate 22 11/03/17 20:31 Blood Pressure 142/89 11/03/17 20:31 O2 Sat by Pulse Oximetry (%) 95 11/03/17 20:31 GENERAL: Awake, alert, and fully oriented, in no acute distress. HEAD: Normal with no signs of trauma. EYES: Pupils equal, round and reactive to light, extraocular movements intact, sclera anicteric, conjunctiva clear. No lid lag. EARS, NOSE, THROAT: Ears normal, nares patent, oropharynx clear without exudates. Moist mucous membranes. NECK: Normal range of motion, supple without lymphadenopathy, JVD, or masses. LUNGS: Tachypnic; bibasilar crackles HEART: Regular rate and rhythm, normal S1 and S2 ABDOMEN: Soft, nontender, not distended, normoactive bowel sounds, no guarding, no rebound, no masses. MUSCULOSKELETAL: Normal range of motion at all joints. No bony deformities or tenderness. No CVA tenderness. UPPER EXTREMITIES: 2+ pulses, warm, well-perfused. No cyanosis. No clubbing. No peripheral edema. LOWER EXTREMITIES: 2+ pulses, warm, well-perfused. No calf tenderness. No peripheral edema. NEUROLOGICAL: Cranial nerves II-XII intact. Normal speech. Laboratory Results - last 24 hr 11/03/17 11/03/17 11/03/17 09:56 09:56 09:56 WBC 6.9 RBC 4.61 Hgb 11.9 Hct 37.9 MCV 82.4 MCH 25.9 MCHC 31.5 L RDW 15.6 Plt Count 239 MPV 8.0 Neutrophils % 61.6 Lymphocytes % 29.6 Monocytes % 5.6 Eosinophils % 2.2 Basophils % 1.0 VBG pH POC VBG pCO2 POC VBG pO2 Mixed VBG HCO3 Sodium 141 Potassium 3.0 L Chloride 100 Carbon Dioxide 31 Anion Gap 10 BUN 27 H Creatinine 1.3 Creat Clearance w eGFR 57.97 Random Glucose 125 H Calcium 8.2 L Total Bilirubin 0.8 AST 32 ALT 33 Alkaline Phosphatase 131 H Creatine Kinase 201 Cancelled Creatine Kinase Index 1.1 CK-MB (CK-2) 2.244 Troponin I 0.08 H Cancelled B-Natriuretic Peptide 3790.87 H Cancelled Total Protein 6.2 L Albumin 3.0 L Urine Color Urine Appearance Urine pH Ur Specific [place] Urine Protein Urine Glucose (UA) Urine Ketones Urine Blood Urine Nitrite Urine Bilirubin Urine Urobilinogen Ur Leukocyte Esterase Digoxin Opiates Screen Methadone Screen Barbiturate Screen Phencyclidine Screen Ur Amphetamines Screen MDMA (Ecstasy) Screen Benzodiazepines Screen Cocaine Screen U Marijuana (THC) Screen 11/03/17 11/03/17 11/03/17 09:56 15:27 17:30 WBC RBC Hgb Hct MCV MCH MCHC RDW Plt Count MPV Neutrophils % Lymphocytes % Monocytes % Eosinophils % Basophils % VBG pH 7.43 H POC VBG pCO2 45.0 POC VBG pO2 71.0 H Mixed VBG HCO3 29.9 H Sodium Potassium 3.2 L Chloride Carbon Dioxide Anion Gap BUN Creatinine Creat Clearance w eGFR Random Glucose Calcium Total Bilirubin AST ALT Alkaline Phosphatase Creatine Kinase Creatine Kinase Index CK-MB (CK-2) Troponin I 0.07 H B-Natriuretic Peptide Total Protein Albumin Urine Color Urine Appearance Urine pH Ur Specific [place] Urine Protein Urine Glucose (UA) Urine Ketones Urine Blood Urine Nitrite Urine Bilirubin Urine Urobilinogen Ur Leukocyte Esterase Digoxin 0.5301 L Opiates Screen Methadone Screen Barbiturate Screen Phencyclidine Screen Ur Amphetamines Screen MDMA (Ecstasy) Screen Benzodiazepines Screen Cocaine Screen U Marijuana (THC) Screen 11/03/17 11/03/17 17:53 17:53 WBC RBC Hgb Hct MCV MCH MCHC RDW Plt Count MPV Neutrophils % Lymphocytes % Monocytes % Eosinophils % Basophils % VBG pH POC VBG pCO2 POC VBG pO2 Mixed VBG HCO3 Sodium Potassium Chloride Carbon Dioxide Anion Gap BUN Creatinine Creat Clearance w eGFR Random Glucose Calcium Total Bilirubin AST ALT Alkaline Phosphatase Creatine Kinase Creatine Kinase Index CK-MB (CK-2) Troponin I B-Natriuretic Peptide Total Protein Albumin Urine Color Straw Urine Appearance Clear Urine pH 7.0 D Ur Specific [place] 1.009 Urine Protein Negative Urine Glucose (UA) Negative Urine Ketones Negative Urine Blood Negative Urine Nitrite Negative Urine Bilirubin Negative Urine Urobilinogen Negative Ur Leukocyte Esterase Negative Digoxin Opiates Screen Positive Methadone Screen Negative Barbiturate Screen Negative Phencyclidine Screen Negative Ur Amphetamines Screen Negative MDMA (Ecstasy) Screen Negative Benzodiazepines Screen Negative Cocaine Screen Positive U Marijuana (THC) Screen Negative ASSESSMENT/PLAN 52 year-old male with a PMH significant for asthma, HTN, HLD, CHF, and polysubstance abuse (alcohol, crack/cocaine, heroin). Admitted for hypoxic respiratory failure secondary to CHF exacerbation. Hypoxic respiratory failure secondary to CHF exacerbation --was satting 82-->89% on room air on admission; CXR with congestive changes and interstitial fluid --Echo pending; no previous studies available to assess systolic v. diastolic --continue home metolazone; start Lasix IV 40mg daily --titrate O2 to >94% --continue digoxin; dig level pending Chest pain --troponins 0.08-->0.07; third pending --ECG: SR @ 90 bpm --cardiology consult Hypertension --BP stable --continue carvedilol, amlodipine Hyperlipidemia --continue Lipitor Asthma --continue albuterol TID --continue Singulair Polysubstance abuse --ETOH: start librium taper --heroin: patient poor historian, unable to say whether has ever been on methadone (??); detox consult with Dr. Clements requested FEN Fluids: PO intake adequate Electrolytes: replete as indicated Nutrition: low sodium DVT prophylaxis: lovenox, oob, ambulation Physical therapy Dispo: continues to require inpatient care. Full code. Visit type - Emergency Visit Emergency Visit: Yes ED Registration Date: 11/03/17 Care time: The patient presented to the Emergency Department on the above date and was hospitalized for further evaluation of their emergent condition. - New Patient This patient is new to me today: Yes Date on this admission: 11/03/17 - Critical Care Critical Care patient: No Hospitalist Screening - Colonoscopy Questionnaire Colonoscopy Questionnaire: Colonoscopy Questionnaire - Patient: 50 - 75 years old and never had a screening colonoscopy: Unknown History of colon or rectal polyps, or CA: No History of IBD, Crohn's disease or UC: No History of abdominal radiation therapy as a child: No - Relative: 1 with colon or rectal CA, or polyps at age 60 or younger: Unknown Colon or rectal CA diagnosed at age 45 or younger: Unknown Multiple relatives with colon or rectal CA: Unknown - Outcome: Screening Result: Negative Screen
[2017-11-03] MEDS ORDERED: ALBUTEROL SO4 2.5/IPRATROPIUM 0.5 INH SOL 3 ML VIAL.NEB. NEB ONE (19:02)
[2017-11-03] MEDS: ALBUTEROL SO4 2.5/IPRATROPIUM 0.5 INH SOL 3 ML VIAL.NEB. NEB SCH (20:54)
[2017-11-03] MEDS ORDERED: ATORVASTATIN CA 10 MG TABLET (FP) PO SCH (22:00)
[2017-11-03] MEDS ORDERED: MONTELUKAST NA 10 MG TABLET PO SCH (22:00)
[2017-11-03] MEDS: CARVEDILOL 6.25 MG TABLET (FP) PO SCH (22:43)
[2017-11-04] MEDS ORDERED: METHADONE HCL 10 MG TABLET PO ONE (01:00)
[2017-11-04] MEDS ORDERED: FUROSEMIDE 40 MG/4 ML INJECTABLE VIAL ONE (05:59)
[2017-11-04] MEDS ORDERED: FUROSEMIDE 40 MG/4 ML INJECTABLE VIAL IVPUSH ONE (06:03)
[2017-11-04] MEDS: chlordiazePOXIDE HCL 25 MG CAPSULE PO SCH ×2 (06:10→10:01)
[2017-11-04] MEDS: ALBUTEROL SO4 2.5/IPRATROPIUM 0.5 INH SOL 3 ML VIAL.NEB. NEB SCH (07:47)
--- NOTE | 2017-11-04 08:21 | EKG ---
Test Reason : Blood Pressure : / mmHG Vent. Rate : 089 BPM Atrial Rate : 089 BPM P-R Int : 202 ms QRS Dur : 104 ms QT Int : 374 ms P-R-T Axes : 045 001 157 degrees QTc Int : 455 ms NORMAL SINUS RHYTHM LEFT VENTRICULAR HYPERTROPHY WITH REPOLARIZATION ABNORMALITY ABNORMAL ECG WHEN COMPARED WITH ECG OF 22-AUG-2017 08:56, ST NO LONGER ELEVATED IN ANTERIOR LEADS T WAVE INVERSION NOW EVIDENT IN ANTERIOR LEADS Confirmed by MADELEINE NINO, TRORI ([id number]) on 11/04/2017 8:21:26 AM Referred By: Confirmed By:TORRI SALVADOR MD
--- NOTE | 2017-11-04 09:10 | CONSULT ---
Consult Detox [facility] Reason for Current Admission/Consult: substance use Referred by:: sri Sidhu - History History of Present Illness: patient discharged prior to completion of consultation - Alcohol/Substance Use Hx Alcohol Use: Yes
[2017-11-04] MEDS ORDERED: PT OWN MED DRAWER 7, Y5N ONE ×2 (09:50→09:59)
[2017-11-04] MEDS: amLODIPine BESYLATE 10 MG TABLET (FP) PO SCH (09:55)
[2017-11-04] MEDS: CARVEDILOL 6.25 MG TABLET (FP) PO SCH (09:56)
[2017-11-04] MEDS: ASPIRIN COATED 81 MG TABLET.EC PO SCH (09:56)
[2017-11-04] MEDS ORDERED: PRENATAL VITAMINS W/ FOLIC ACID TABLET (FP) PO SCH (10:00)
[2017-11-04] MEDS ORDERED: DIGOXIN 0.125 MG TABLET (FP) PO SCH (10:00)
[2017-11-04] MEDS ORDERED: ENOXAPARIN NA (PORCINE) 40 MG/0.4 ML DISP.SYRIN SQ SCH (10:00)
[2017-11-04] MEDS ORDERED: FUROSEMIDE 40 MG/4 ML INJECTABLE VIAL IVPUSH SCH (10:00)
[2017-11-04] MEDS ORDERED: METOLAZONE 2.5 MG TABLET (FP) PO SCH ×2 (10:00→10:48)
[2017-11-04 12:42] VITALS: BP 126/59; PULSE 102; TEMP 98
[2017-11-04] MEDS ORDERED: chlordiazePOXIDE HCL 25 MG CAPSULE PO SCH (17:00)
[2017-11-04] MEDS ORDERED: THIAMINE HCL 100 MG TABLET (FP) PO SCH (22:00)
[2017-11-05] MEDS ORDERED: chlordiazePOXIDE 5 MG CAPSULE PO SCH (17:00)
== END 2017-11-04 12:07 | disposition left against medical advice (07) | DRG 194 ==
LOC: JER 09:05 → JERBED 16:15 → OBSVTOIN 18:42 → J4W 22:22
PROVIDERS: ADMIT Internal Medicine; ATTEND Nurse Practitioner Acute Care
DX: I11.0 Hypertensive heart disease with heart failure (principal); J96.01 Acute respiratory failure with hypoxia; E78.5 Hyperlipidemia, unspecified; F10.10 Alcohol abuse, uncomplicated; F14.10 Cocaine abuse, uncomplicated; F17.210 Nicotine dependence, cigarettes, uncomplicated; J45.909 Unspecified asthma, uncomplicated; F11.10 Opioid abuse, uncomplicated; I50.9 Heart failure, unspecified
CPT/HCPCS: 36415; 71045-TC-FY; 80053; 80162; 80307; 81003; 82550; 82553; 82803; 83880; 84132; 84484; 85025; 93005; 93010; 94640; 97116-GP; 97161-GP; 99285-25; G0378